=== PATIENT | male | born 1980 | race Caucasian/White ===

== ENCOUNTER 2021-05-28 09:03 | Emergency (ER) | payer BC, SELFPAY ==
[2021-05-28 09:03] VITALS: BP 112/62; PULSE 105; RESP 16; TEMP 35.9; O2SAT 97; BMI 25.7
--- NOTE | 2021-05-28 10:01 | RAD_ITS ---
STUDY: X-RAY - LUMBAR SPINE REASON FOR EXAM: Male, 40 years old. Low back pain with spasm TECHNIQUE: 3 view(s) of the lumbar spine were obtained. COMPARISON: None FINDINGS: Normal lumbar lordosis. There is no substantial scoliosis, accounting for pelvic obliquity. There is a normal alignment of the vertebrae. Normal vertebral bodies and endplates. Normal disc space heights. There is no demonstrated fracture. The soft tissue structures are unremarkable. RAD/Lumbar Spine 2 or 3 Views IMPRESSION: Normal x-ray examination of the lumbar spine. Electronically Signed: Kin Dave MD ([place]) at 10:48 EST , Service support ,
--- NOTE | 2021-05-28 10:03 | ED.VIS.BACK ---
HPI History of Present Illness Chief Complaint: Back Informant: patient and spouse/S.O. Narrative Narrative: Patient developed back pain at work. He states he had similar episode about 6 years ago. He does have a known lumbar disc normally does not give radicular symptoms. He states this morning his back was just slightly sore. This is not markedly on usual. While at work, he was walking in his back to spasm and. It made him go lay down on the ground. He had does not and did not have any radicular symptoms. No loss of bowel or bladder function. The pain is all the lower lumbar and sacral area. It is on both sides but more on the left. Motion tends to make it worse. Being still makes it better. This is similar to prior events. He did not actually have a fall or impact or lifting to initiate this. He has no history recent fevers chills infections or cancers. Past medical history is positive for mild back pain. Medications are pantoprazole and Escitalopram No known drug allergies No surgeries PFSH PFSH Medical History no medical history Home Medications cyclobenzaprine 10 mg PO BID PRN #10 tab 05/28/21 [Rx Last Taken Unknown] naproxen 500 mg PO BID #14 tab 05/28/21 [Rx Last Taken Unknown] oxycodone-acetaminophen [Percocet] 1 tab PO Q6H PRN 2 Days #8 tab 05/28/21 [Rx Last Taken Unknown] Allergy/AdvReac Type Severity Reaction Status Date / Time No Known Allergies Allergy Verified 05/28/21 09:05 Social History Smoking Status: Never smoker ROS ROS ED Constitutional Constitutional ED: Denies chills or fever(s) Eyes Eyes: Denies blurry vision ENT ENT ED: Denies rhinorrhea or sore throat Cardiovascular Cardiovascular: Denies chest pain Gastrointestinal Gastrointestinal: Denies abdominal pain, constipation, diarrhea, nausea or vomiting Genitourinary Genitourinary ED: Denies dysuria, hematuria or urinary frequency Musculoskeletal Musculoskeletal: Reports back pain; Denies neck pain Integumentary Denies rash Neurologic Neurologic: Denies headache(s) or weakness Psychiatric Psychiatric: Denies depression Endocrine Endocrinology: Denies polydipsia or polyuria Hematologic/Lymphatic Hematologic/Lymphatic: Denies easy bleeding or easy bruising Allergic/Immunologic Allergic/Immunologic ED: Denies mouth swelling or urticaria EXAM Physical Exam Const Vital Signs: 05/28/21 09:03 05/28/21 11:34 Temperature 96.7 F L Temperature Source Temporal Pulse Rate 105 H 61 Respiratory Rate 16 16 Blood Pressure 112/62 131/83 H Blood Pressure Mean 78 99 Pulse Ox 97 Oxygen Delivery Method Room Air Patient prefers to lay on his abdomen as it makes her back more comfortable. He is calm and relaxed at this time. Positive well nourished and well developed General Appearance ED: well developed HEENT Negative for trauma Neck no JVD Resp normal respiratory effort and clear to auscultation bilaterally Effort and Inspection: Negative for pain with movement or other Auscultation: Negative for rales or rhonchi Cardio regular rate and regular rhythm GI normal to inspection, nondistended, normoactive bowel sounds, soft to palpation, non-tender and non-distended Back/Spine normal to inspection Back/Spine Narrative: Patient does have very low lumbar and sacral area tenderness. Slightly more on the left than the right. No skin changes. No rash. No notable buttock tenderness. It is more painful if he moves or lifts his legs. Extremity normal to inspection Extremity Narrative: Legs are not swollen or tender. Neuro Neuro Narrative: Sensation is intact. Patient has good bilateral reflexes. Normal muscular strength throughout lower extremities. Deep Tendon Reflexes: Rt Patellar (L4): 2+, Lt Patellar (L4): 2+, Rt Ankle (S1): 1+ and Lt Ankle (S1): 1+ Deep Tendon Reflexes Back: Rt Patellar (L4): 2+, Lt Patellar (L4): 2+, Rt Ankle (S1): 1+ and Lt Ankle (S1): 1+ Psych mental status grossly normal Skin no rashes or lesions noted and no wounds MDM MDM MDM Narrative Medical decision making narrative: X-ray showed no sign of acute process. Patient is better after meds. He still has some spasm so he is given some Norflex. He is comfortable going home. We discussed using ice rest. His online prescribing program shows 0 narcotics or controlled substances. I will give him some nonsteroidals, muscle relaxants and a few narcotics for breakthrough pain. Radiography Diagnostic Testing: Clinical Impression(s) from Imaging Studies Lumbar Spine X-Ray 05/28/21 10:01 IMPRESSION: Normal x-ray examination of the lumbar spine. Electronically Signed: Kin Dave MD ([place]) at 10:48 EST , Service support , Discharge Plan Triage Chief Complaint: Back ED Provider: Loco Myers Dx/Rx/DC Orders Clinical Impression: Acute back pain, Lumbar paraspinal muscle spasm Instructions: ED Back Sprain/Strain Prescriptions: New cyclobenzaprine 10 mg tablet 10 mg PO BID PRN (Reason: muscle spasm) Qty: 10 RF: 0 oxycodone-acetaminophen [Percocet] 5-325 mg tablet 1 tab PO Q6H PRN (Reason: pain) 2 Days Qty: 8 RF: 0 naproxen 500 MG tablet 500 mg PO BID Qty: 14 RF: 0 Referrals: KIM THOMAS [Other] - 3-5 Days Disposition Disposition: Home, Self Care
[2021-05-28] MEDS: HYDROmorphone 1 MG/ML Syringe IM (10:12)
[2021-05-28] MEDS: Ketorolac 60 MG/2 ML Vial IM (10:13)
[2021-05-28 11:34] VITALS: BP 131/83; PULSE 61; RESP 16
[2021-05-28] MEDS: Orphenadrine 60 MG/2 ML Ampul IM (11:35)
[2021-05-28 12:16] VITALS: RESP 16
== END 2021-05-28 12:20 | disposition home or self-care (01) ==
PROVIDERS: Emergency Provider Emergency Medicine; PCP Family Medicine
DX: M54.9 Dorsalgia, unspecified (principal); M62.830 Muscle spasm of back; Z79.1 Long term (current) use of non-steroidal anti-inflammatories (NSAID)
CPT/HCPCS: 72100; 96372; 99282